=== PATIENT | female | born 1995 | race African-American/Black ===

== ENCOUNTER 2023-02-08 09:05 | Emergency (ER) | payer OTHER ==
[2023-02-08 09:16] VITALS: BP 119/65; PULSE 90; RESP 20; TEMP 98.7; BMI 27.4
[2023-02-08] MEDS ORDERED: SODIUM CHLORIDE 0.9% 500 ML INFUS.BAG IV ONE (09:43)
[2023-02-08] MEDS ORDERED: ACETAMINOPHEN 1000 MG/100 ML BAG IVPB ONE (09:43)
[2023-02-08] MEDS ORDERED: ACETAMINOPHEN INJECTION 100 ML IVPB ONE (09:43)
[2023-02-08 10:05] LABS: BASO % 0.6 % (0-2.0); EOS % 0.8 % (0-4.5); HEMATOCRIT 40.7 % (32.4-45.2); HEMOGLOBIN 13.5 GM/dL (10.7-15.3); LYMPH % 34.4 % (8-40); MCH 30.9 pg (25.7-33.7); MCHC 33.2 g/dl (32.0-36.0); MEAN PLT VOLUME 9.1 fl (7.5-11.1); MONO % 9.3 % (3.8-10.2); NEUT % 54.9 % (42.8-82.8); PLATELET COUNT 262 10^3/uL (134-434); RBC 4.38 M/mm3 (3.60-5.2); RDW 13.3 % (11.6-15.6)
[2023-02-08 10:23] LABS: POTASSIUM 3.9 mmol/L (3.5-5.1)
[2023-02-08 10:25] LABS: ALBUMIN 3.6 g/dl (3.4-5.0); BLOOD UREA NITROGEN 7.5 mg/dL (7-18); CALCIUM 8.7 mg/dL (8.5-10.1)
[2023-02-08 10:29] LABS: BILIRUBIN,TOTAL 0.5 mg/dL (0.2-1); CREATININE 0.6 mg/dL (0.55-1.3); TOT PROT 7.5 g/dl (6.4-8.2)
[2023-02-08] MEDS ORDERED: KETOROLAC TROMETHAMINE 30 MG/1 ML VIAL IVPUSH ONE (10:35)
[2023-02-08] MEDS ORDERED: CLINDAMYCIN 600MG PREMIX IVPB 600 MG/50 ML BAG IVPB ONE ×2 (10:36→10:47)
[2023-02-08] MEDS ORDERED: KETOROLAC TROMETHAMINE 30 MG/1 ML VIAL ONE (10:47)
[2023-02-08] MEDS ORDERED: CEPHALEXIN MONOHYDRATE 500 MG CAPSULE (UD) PO ONE (10:51)
[2023-02-08] MEDS ORDERED: SULFAMETHOXAZOLE/TRIMETHOPRIM 800MG/160MG D.S. TABLET PO ONE (10:51)
[2023-02-08] MEDS ORDERED: SULFAMETHOXAZOLE/TRIMETHOPRIM 800MG/160MG D.S. TABLET ONE (11:10)
[2023-02-08] MEDS ORDERED: CEPHALEXIN MONOHYDRATE 500 MG CAPSULE (UD) ONE (11:10)
== END 2023-02-08 14:19 | disposition home or self-care (01) ==
LOC: JER 09:05
PROC: 3E033NZ Introduction of Analgesics, Hypnotics, Sedatives into Peripheral Vein, Percutaneous Approach (ICD-10-PCS; principal; 2023-02-08)
PROC: 3E0333Z Introduction of Anti-inflammatory into Peripheral Vein, Percutaneous Approach (ICD-10-PCS; 2023-02-08)
DX: L03.116 Cellulitis of left lower limb (principal)
CPT/HCPCS: 36415; 76882-TC-RT-FY; 80053; 84703; 85025; 87040; 99284-25

== ENCOUNTER 2023-06-28 15:38 | Emergency (ER) | payer OTHER ==
[2023-06-28 16:12] VITALS: BP 112/76; PULSE 111; RESP 18; TEMP 98.4; BMI 30.7
[2023-06-28 16:56] LABS: PH,URINE 6.5 (5.0-8.0); URINE APPEARANCE CLOUDY; URINE BILIRUBIN NEGATIVE (NEGATIVE); URINE COLOR YELLOW; URINE GLUCOSE (UA) NEGATIVE (NEGATIVE); URINE KETONE NEGATIVE (NEGATIVE); URINE LEUK ESTERASE NEGATIVE (NEGATIVE); URINE NITRITE NEGATIVE (NEGATIVE); URINE PROTEIN TRACE (NEGATIVE)
[2023-06-28 16:57] LABS: BASO % 0.6 % (0-2.0); EOS % 1.8 % (0-4.5); HEMATOCRIT 35.5 % (32.4-45.2); HEMOGLOBIN 11.9 GM/dL (10.7-15.3); LYMPH % 23.7 % (8-40); MCH 31.7 pg (25.7-33.7); MCHC 33.6 g/dl (32.0-36.0); MEAN CELL VOLUME 94.5 fl (80-96); MEAN PLT VOLUME 8.8 fl (7.5-11.1); MONO % 13.2 % (3.8-10.2); NEUT % 60.7 % (42.8-82.8); PLATELET COUNT 216 10^3/uL (134-434); RBC 3.75 M/mm3 (3.60-5.2); RDW 13.6 % (11.6-15.6); WHITE BLOOD COUNT 12.3 K/mm3 (4.0-10.0)
[2023-06-28 17:02] LABS: INR 0.95 (0.83-1.09); PROTHROMBIN TIME (PATIENT) 10.7 SEC (9.7-13.0)
[2023-06-28 17:05] LABS: ACTIVATED PTT 27.5 SECONDS (25.2-36.5)
[2023-06-28 17:15] LABS: POTASSIUM 4.2 mmol/L (3.5-5.1)
[2023-06-28 17:17] LABS: CALCIUM 9.3 mg/dL (8.5-10.1)
[2023-06-28 17:18] LABS: ALBUMIN 3.1 g/dl (3.4-5.0); BLOOD UREA NITROGEN 9.9 mg/dL (7-18)
[2023-06-28 17:21] LABS: CREATININE 0.7 mg/dL (0.55-1.3)
[2023-06-28 17:22] LABS: BILIRUBIN,TOTAL 0.3 mg/dL (0.2-1)
[2023-06-28] MEDS ORDERED: ACETAMINOPHEN INJECTION 100 ML IVPB ONE (17:30)
[2023-06-28] MEDS: ACETAMINOPHEN 1000 MG/100 ML BAG IVPB ONE (17:43)
[2023-06-28] MEDS: SODIUM CHLORIDE 0.9% 500 ML INFUS.BAG IV ONE (17:44)
== END 2023-06-28 20:18 | disposition home or self-care (01) ==
LOC: JER 15:38
PROC: 3E033NZ Introduction of Analgesics, Hypnotics, Sedatives into Peripheral Vein, Percutaneous Approach (ICD-10-PCS; principal; 2023-06-28)
DX: O26.892 Other specified pregnancy related conditions, second trimester (principal); R10.33 Periumbilical pain; Z3A.19 19 weeks gestation of pregnancy
CPT/HCPCS: 36415; 71045-TC-FY; 76700-TC; 80053; 81003; 83690; 85025; 85610; 85730; 86850; 86900; 86901; 87086; 99285-25; J0131